=== PATIENT | male | born 1965 | race Caucasian/White ===

== ENCOUNTER 2017-02-07 13:53 | Emergency (ER) | payer OTHER, BC ==
[~2017-02-07] VITALS: Ht 172.7 cm; Wt 95.0 kg
[~2017-02-07 13:53] MED LIST: LISINOP/HCTZ1 TAB PO; LORTAB 7.5 OR; PRILOSEC20 MG PO; ZOFRAN ODT8 MG SL
[2017-02-07] MEDS ORDERED: SINGULAIR10 MG PO (14:22)
[2017-02-07] MEDS ORDERED: MOTRIN400 MG PO (15:41)
[2017-02-07 15:45] VITALS: BP 132/97
== END 2017-02-07 15:51 | disposition home or self-care (01) | DRG 556 ==
LOC: ED 13:53
DX: M25.512 Pain in left shoulder (principal); R07.89 Other chest pain

== ENCOUNTER 2020-12-23 08:59 | Emergency (ER) | payer BC ==
[~2020-12-23] VITALS: Ht 172.7 cm; Wt 95.4 kg
[~2020-12-23 08:59] MED LIST changes: +MOTRIN400 MG PO; +SINGULAIR10 MG PO
[2020-12-23 10:00] LABS: HEMOGLOBIN 16.2 g/dl (14.0-18.0); IMMATURE GRANULOCYTES 0.3 % (0.0-5.0); MEAN CELL VOLUME 92.1 fL CALC (80.0-100.0); MEAN CORPUSCULAR HGB 30.3 pG CALC (26.0-32.0); MEAN CORPUSCULAR HGB CONC 32.9 g/dL CAL (32.0-36.0); NEUT# 8.17 thou/uL (1.82-7.42); RED BLOOD COUNT 5.35 mill/uL (4.70-6.10)
[2020-12-23 10:11] LABS: HEMATOCRIT 49.3 % (39.0-50.0)
[2020-12-23 10:19] LABS: ALBUMIN 3.9 g/dL (3.2-5.0); ALKALINE PHOSPHATASE 53 u/l (38-126); ANION GAP 15 (6-22 (CALC)); BUN 17 mg/dL (9-20); BUN/CREATININE RATIO 15 (12-20 (CALC)); CARBON DIOXIDE 23 mmol/l (22-30); CHLORIDE 101 mmol/l (95-108); CREATININE 1.2 mg/dL (0.7-1.3); GFR > 60 ML/MIN (>=60 (CALC)); GFR FOR AFR.AMER. > 60 ML/MIN (>=60 (CALC)); POTASSIUM 3.8 mmol/l (3.5-5.1); SGOT/AST 24 u/l (17-59); SODIUM 136 mmol/l (137-146); TOTAL PROTEIN 6.8 g/dL (6.3-8.2)
[2020-12-23 10:25] LABS: BILIRUBIN, TOTAL 0.5 mg/dL (0.0-1.4)
[2020-12-23] MEDS ORDERED: BENADRYL25 M1 PO (12:48)
[2020-12-23] MEDS ORDERED: MEDDOSEPAK PO (12:48)
[2020-12-23 13:07] VITALS: BP 120/70
== END 2020-12-23 13:07 | disposition home or self-care (01) | DRG 916 ==
LOC: ED 08:59
DX: T78.3XXA Angioneurotic edema, initial encounter (principal); I10 Essential (primary) hypertension

== ENCOUNTER 2022-08-21 07:13 | Day surgery (SDC) | payer BC ==
[~2022-08-21] VITALS: Ht 172.7 cm; Wt 95.3 kg
[~2022-08-21 07:13] MED LIST changes: +ALPRAZOLAM XR1 MG PO; +BENADRYL25 M1 PO; +MEDDOSEPAK PO
[2022-08-21 08:48] VITALS: BP 134/100
== END 2022-08-21 09:15 | disposition home or self-care (01) | DRG 951 ==
LOC: ENDO 07:13
PROVIDERS: ATTEND Surgery
PROC: 0DBM8ZX Excision of Descending Colon, Via Natural or Artificial Opening Endoscopic, Diagnostic (ICD-10-PCS; principal; 2022-08-21)
PROC: 0DBN8ZX Excision of Sigmoid Colon, Via Natural or Artificial Opening Endoscopic, Diagnostic (ICD-10-PCS; 2022-08-21)
DX: Z12.11 Encounter for screening for malignant neoplasm of colon (principal); D12.4 Benign neoplasm of descending colon; K63.5 Polyp of colon; K57.30 Diverticulosis of large intestine without perforation or abscess without bleeding; K64.8 Other hemorrhoids; I10 Essential (primary) hypertension; F41.9 Anxiety disorder, unspecified; F17.200 Nicotine dependence, unspecified, uncomplicated

== ENCOUNTER 2022-11-11 06:55 | Day surgery (SDC) | payer BC ==
[~2022-11-11] VITALS: Ht 172.7 cm; Wt 95.3 kg
[2022-11-11] MEDS ORDERED: PERCOCET 5/321 COMBO PO (08:54)
[2022-11-11 11:06] VITALS: BP 153/97
== END 2022-11-11 11:22 | disposition home or self-care (01) | DRG 419 ==
LOC: ORM 06:55
PROVIDERS: ATTEND Surgery
PROC: 0FT44ZZ Resection of Gallbladder, Percutaneous Endoscopic Approach (ICD-10-PCS; principal; 2022-11-11)
DX: K80.10 Calculus of gallbladder with chronic cholecystitis without obstruction (principal); I10 Essential (primary) hypertension; F41.9 Anxiety disorder, unspecified; K21.9 Gastro-esophageal reflux disease without esophagitis; F17.200 Nicotine dependence, unspecified, uncomplicated
CPT/HCPCS: J0131; J1100; J1610; J2710; Q9966